=== PATIENT | female | born 1960 | race Asian ===

== ENCOUNTER → 2016-04-26 | Outpatient (CLI) | payer OTHER ==
[~2016-04-26] VITALS: Ht 157.5 cm; Wt 53.5 kg
[~2016-04-26] MED LIST: DULC100C PO; PROPOFOL 200 MG/20 ML AMP IV ONE
[2016-04-26 06:40] VITALS: BP 118/67; PULSE 71; RESP 16; TEMP 98.4; O2SAT 98
[2016-04-26 08:05] VITALS: TEMP 98.1
[2016-04-26 08:15] VITALS: BP 99/55; PULSE 55; RESP 16; O2SAT 99
--- NOTE | 2016-04-26 15:43 | EKG ---
Date Performed: 04/26/2016 Time Performed: 07:24:10 PTAGE: 56 years EKG: Sinus rhythm NORMAL ECG NO PREVIOUS TRACING DOCTOR: Mian Covington Interpretating Date/Time 04/26/2016 15:40:29
== END ==
LOC: HEND 05:47
PROVIDERS: ATTEND Colon & Rectal Surgery
DX: Z12.11 Encounter for screening for malignant neoplasm of colon (principal); Z80.0 Family history of malignant neoplasm of digestive organs; Z86.010 Personal history of colon polyps; D12.7 Benign neoplasm of rectosigmoid junction; Z01.810 Encounter for preprocedural cardiovascular examination
CPT/HCPCS: 88305; 93005

== ENCOUNTER → 2016-05-17 | Day surgery (SDC) | payer OTHER ==
[~2016-05-17] MED LIST changes: +ACETAMINOPHEN 1000 MG/100 ML VIAL IV ONE; +LACTATED RINGER'S 1000 ML INJ 1,000 ML ONE; +LIDOCAINE 1%/EPINEPHrine 1:100,000 SOLN 30 ML VIAL ONE; +MIDAZOLAM HCL 2 MG/2 ML VIAL ONE; +ONDANSETRON HCL 4 MG/2 ML VIAL IV PUSH ONE; +VANCOMYCIN HCL 1000 MG VIAL ONE; +ceFAZolin INJ 1,000 MG VIAL ONE
--- NOTE | 2016-06-01 13:15 | MP ---
cc: JOSSELIN ENRIQUEZ M.D. DATE OF SURGERY 05/17/2016 PROCEDURE Right breast wide local excision with needle localization. PREOPERATIVE DIAGNOSIS DCIS right breast. POSTOPERATIVE DIAGNOSIS DCIS right breast. ANESTHESIA LMA SURGEON Josselin Enriquez MD ESTIMATED BLOOD LOSS 30 mL FLUIDS 1050 mL crystalloid COMPLICATIONS None DRAINS None SPECIMEN Right breast tissue to pathology. PROCEDURE IN DETAIL The patient was seen in the Department of Radiology where she underwent needle localization. She was taken to the operating room and placed on the operating table in the supine position. The right breast was prepped and draped. Time-out was taken confirming the correct patient, site, and procedure to be performed. At this point, an incision was made in a circumareolar fashion from approximately the 8 o'clock to the 11 o'clock position on the breast. This was accomplished midway between the needle insertion site and the nipple-areolar complex. Dissection was carried down to the needle which was cut at the skin and brought into the wound. A generous core of tissue was removed including the needle. It should be noted that the clip had migrated in this patient after the initial image guided biopsy and was at least 3 cm from the biopsy site. Thus, the lesion was removed, but the clip was left behind. This was confirmed by the radiologist as well. While awaiting radiologic confirmation, the wound was made hemostatic with electrocautery. Upon receiving confirmation, the wound was closed in two layers with interrupted 3-0 Vicryl suture and 5-0 PDS in a running subcuticular fashion. The wound was dressed with Steri-Strips. The patient was taken back to the recovery room in stable condition. She tolerated the procedure well. Sponge, needle and instrument counts were reported to be correct. MD SANDRA Moyer/DJL /12:38 PM /12:58 PM BARBARA
== END | disposition home or self-care (01) ==
LOC: ESDC 07:21
PROVIDERS: ATTEND Surgery Trauma Surgery
DX: D05.11 Intraductal carcinoma in situ of right breast (principal)
CPT/HCPCS: 00400; 19125; 88307; 88361; J0131; J0690; J2250; J2405; J3010; J3370; J7120

== ENCOUNTER → 2016-07-11 | Outpatient (CLI) | payer OTHER ==
[~2016-07-11] MED LIST changes: -ACETAMINOPHEN 1000 MG/100 ML VIAL IV ONE; -LACTATED RINGER'S 1000 ML INJ 1,000 ML ONE; -LIDOCAINE 1%/EPINEPHrine 1:100,000 SOLN 30 ML VIAL ONE; -MIDAZOLAM HCL 2 MG/2 ML VIAL ONE; -ONDANSETRON HCL 4 MG/2 ML VIAL IV PUSH ONE; -PROPOFOL 200 MG/20 ML AMP IV ONE; -VANCOMYCIN HCL 1000 MG VIAL ONE; -ceFAZolin INJ 1,000 MG VIAL ONE
[2016-07-11 10:06] LABS: ALKALINE PHOSPHATASE 94 U/L (45-117); ALT (GPT) 29 U/L (10-53); ANION GAP 7 MEQ/L (5-15); AST (GOT) 14 U/L (15-37); BICARBONATE 29.6 MEQ/L (21.0-32.0); BLOOD UREA NITROGEN 9 MG/DL (7-18); CHLORIDE 103 MEQ/L (98-107); FREE T4 1.17 NG/DL (0.76-1.46); GLOMERULAR FILTRATION RATE 75 ML/MIN (>89); GLUCOSE,FASTING 97 MG/DL (74-99); MAGNESIUM 2.4 MG/DL (1.5-2.5); POTASSIUM 3.5 MEQ/L (3.5-5.1); SODIUM (NA) 140 MEQ/L (136-145); TOTAL BILIRUBIN ADULT 0.3 MG/DL (0.2-1.0)
== END ==
LOC: CLAB 09:08
PROVIDERS: ATTEND Radiology Radiation Oncology
DX: R00.2 Palpitations (principal); D05.11 Intraductal carcinoma in situ of right breast
CPT/HCPCS: 36415; 80053; 83735; 84439; 84443

== ENCOUNTER → 2016-07-26 | Outpatient (CLI) | payer OTHER ==
[2016-07-26 09:10] LABS: AUTOMATED NEUTROPHIL # 6.2 TH/MM3 (1.8-7.7); BASOPHIL # 0.1 TH/MM3 (0-0.2); EOSINOPHIL # 0.2 TH/MM3 (0-0.4); EOSINOPHIL % 2.7 % (0.0-4.0); HEMATOCRIT 45.4 % (35.0-46.0); HEMO FLAGS DIFF FINAL; LYMPHOCYTE # 1.1 TH/MM3 (1.0-4.8); MEAN CORPUSCULAR HEMOGLOBIN 27.1 PG (27.0-34.0); MONO % 5.1 % (0.0-8.0); NEUT % 77.2 % (16.0-70.0); PLATELET COUNT 278 TH/MM3 (150-450); RED BLOOD COUNT 5.53 MIL/MM3 (4.00-5.30); RED CELL DISTRIBUTION WIDTH 13.8 % (11.6-17.2)
== END ==
LOC: CLAB 08:47
PROVIDERS: ATTEND Radiology Radiation Oncology
DX: D05.11 Intraductal carcinoma in situ of right breast (principal)
CPT/HCPCS: 36415; 85025

== ENCOUNTER → 2016-09-29 | Outpatient (CLI) | payer OTHER ==
[2016-09-29 14:27] LABS: ALT (GPT) 29 U/L (10-53); ANION GAP 5 MEQ/L (5-15); AST (GOT) 28 U/L (15-37); BICARBONATE 29.8 MEQ/L (21.0-32.0); BLOOD UREA NITROGEN 8 MG/DL (7-18); CHLORIDE 108 MEQ/L (98-107); GLOMERULAR FILTRATION RATE 71 ML/MIN (>89); GLUCOSE,FASTING 93 MG/DL (74-99); POTASSIUM 3.7 MEQ/L (3.5-5.1); SODIUM (NA) 143 MEQ/L (136-145)
[2016-09-29 14:30] LABS: ALKALINE PHOSPHATASE 79 U/L (45-117); TOTAL BILIRUBIN ADULT 0.3 MG/DL (0.2-1.0)
== END ==
LOC: CLAB 13:47
PROVIDERS: ATTEND Family Medicine Adolescent Medicine
DX: E87.8 Other disorders of electrolyte and fluid balance, not elsewhere classified (principal)
CPT/HCPCS: 36415; 80053

== ENCOUNTER 2017-06-12 21:09 | Emergency (ER) | payer OTHER ==
[~2017-06-12] VITALS: Ht 157.5 cm; Wt 55.0 kg
[2017-06-12 21:38] VITALS: BP 126/68; PULSE 89; RESP 18; TEMP 98.6; O2SAT 98
[2017-06-13] MEDS ORDERED: SODIUM CHLOR 0.9% 1000 ML INJ 1,000 ML IV SCH (03:25)
[2017-06-13] MEDS ORDERED: SODIUM CHLORIDE 0.9% FLUSH 10 ML FLUSH IV FLUSH PRN (03:30)
[2017-06-13] MEDS ORDERED: ONDANSETRON HCL 4 MG/2 ML VIAL IVP ONE (03:30)
[2017-06-13] MEDS ORDERED: KETOROLAC TROMETHAMINE 30 MG/ML (IVP) VIAL IVP ONE (03:30)
[2017-06-13 03:42] VITALS: BP 119/57; PULSE 65; RESP 16; TEMP 99.6; O2SAT 97
[2017-06-13 03:59] LABS: AUTOMATED NEUTROPHIL # 8.1 TH/MM3 (1.8-7.7); BASOPHIL # 0.1 TH/MM3 (0-0.2); EOSINOPHIL # 0.1 TH/MM3 (0-0.4); EOSINOPHIL % 0.8 % (0.0-4.0); HEMATOCRIT 42.2 % (35.0-46.0); HEMOGLOBIN 14.1 GM/DL (11.6-15.3); LYMPH % 12.8 % (9.0-44.0); LYMPHOCYTE # 1.3 TH/MM3 (1.0-4.8); MEAN CELL VOLUME 83.8 FL (80.0-100.0); MEAN CORPUSCULAR HEMOGLOBIN 27.9 PG (27.0-34.0); MEAN CORPUSCULAR HGB CONC 33.3 % (32.0-36.0); MEAN PLATELET VOLUME 7.6 FL (7.0-11.0); MONO % 4.3 % (0.0-8.0); MONOCYTE # 0.4 TH/MM3 (0-0.9); NEUT % 81.1 % (16.0-70.0); PLATELET COUNT 215 TH/MM3 (150-450); RED BLOOD COUNT 5.04 MIL/MM3 (4.00-5.30); RED CELL DISTRIBUTION WIDTH 13.5 % (11.6-17.2)
[2017-06-13 04:09] LABS: BACTERIA, URINE RARE /hpf; BILIRUBIN, URINE NEG (NEG); BLOOD, URINE MOD (NEG); GLUCOSE,URINE NEG (NEG); KETONE, URINE 10 mg/dL (NEG); MUCUS URINE FEW /lpf (OCC); NITRITE,URINE NEG (NEG); PH, URINE 6.5 (5.0-8.5); SQUAMOUS EPITHELIAL CELL URINE 4 /hpf (0-5); TRANSITIONAL EPI CELLS, URINE <1 /hpf; URINE COLOR YELLOW (YELLW/STRAW); URINE LEUKOCYTE ESTERASE LARGE (NEG)
[2017-06-13 04:13] LABS: ALBUMIN 3.7 GM/DL (3.4-5.0); AST (GOT) 33 U/L (15-37); BICARBONATE 25.9 MEQ/L (21.0-32.0); BLOOD UREA NITROGEN 11 MG/DL (7-18); CALCIUM 8.7 MG/DL (8.5-10.1); CHLORIDE 106 MEQ/L (98-107); CREATININE 1.13 MG/DL (0.50-1.00); GLOMERULAR FILTRATION RATE 50 ML/MIN (>89); GLUCOSE,RANDOM 114 MG/DL (74-106); SODIUM (NA) 142 MEQ/L (136-145)
[2017-06-13 04:14] LABS: ALT (GPT) 30 U/L (10-53)
[2017-06-13 04:16] LABS: ALKALINE PHOSPHATASE 46 U/L (45-117); TOTAL BILIRUBIN ADULT 0.4 MG/DL (0.2-1.0); TOTAL PROTEIN 7.6 GM/DL (6.4-8.2)
--- NOTE | 2017-06-13 04:48 | RADRPT ---
EXAM DATE/TIME: 06/13/2017 04:37 [facility] COMPARISON: No previous studies available for comparison. INDICATIONS : Left flank pain. ORAL CONTRAST: No oral contrast ingested. RADIATION DOSE: 7.44 CTDIvol (mGy) MEDICAL HISTORY : Renal calculi. SURGICAL HISTORY : section. ENCOUNTER: Initial ACUITY: 1 day PAIN SCALE: 10/10 LOCATION: Left flank TECHNIQUE: Renal colic protocol. Volumetric scanning of the abdomen and pelvis was performed. Using automated exposure control and adjustment of the mA and/or kV according to patient size, radiation dose was kep t as low as reasonably achievable to obtain optimal diagnostic quality images. DICOM format image da ta is available electronically for review and comparison. FINDINGS: Right side: No evidence of hydronephrosis. No calcified stones in the collecting system or right ureter. Left side: Moderate severity hydronephrosis due to a 6 mm calcified stone in the proximal left ureter stop perin ephric fat intact. No additional calcified stones seen. Bladder: Smooth margins. No calcifications within the lumen. Other: Diffuse fatty change the liver. No calcified gallstones. Small hiatus hernia. CONCLUSION: 1. Left-sided obstructive uropathy due to 6 mm calcified proximal ureteral stone. Jian Mo MD on June 13, 2017 at 4:44 Board Certified Radiologist. This report was verified electronically.
[2017-06-13] MEDS ORDERED: PIPERACIL-TAZO 4.5 GM PREMIX 100 ML IV ONE (05:00)
[2017-06-13] MEDS ORDERED: SODIUM CHLOR 0.9% 1000 ML INJ 1,000 ML IV ONE (05:00)
[2017-06-13] MEDS ORDERED: MORPHINE SULFATE 2 MG/ML INJ IM ONE (05:00)
[2017-06-13] MEDS ORDERED: TAMS5CAP PO (06:30)
[2017-06-13] MEDS ORDERED: PERC5TAB12 PO (06:30)
--- NOTE | 2017-06-13 06:30 | PD ---
HPI . Flank pain/kidney pain Chief Complaint: Flank/Kidney Pain Time Seen by Provider: 03:17 Travel History International Travel<30 days: No Contact w/Intl Traveler<30days: No Traveled to known affect area: No History of Present Illness HPI 57-year-old female complains of having intermittent left flank pain the past 48 hours, worsening tonight. Patient denies any fever chills sweats, dysuria urgency frequency. Patient has had no similar pain before. There is no history of trauma. Denies hematuria PFSH Past Medical History Narrative Medical Past medical history reviewed Cancer: Yes (PENDING RIGHT BREAST BIOPSY) Cardiovascular Problems: No Diabetes: No Endocrine: No Gastrointestinal Disorders: Yes (POLYPS) Genitourinary: No Hepatitis: No Hiatal Hernia: No Immune Disorder: No Musculoskeletal: Yes (OA) Neurologic: No Psychiatric: No Reproductive: No Respiratory: No Thyroid Disease: No ?: Not LMP: "FIVE YEARS AGO" Past Surgical History Abdominal Surgery: No AICD: No Cardiac Surgery: No Ear Surgery: No Endocrine Surgery: No Eye Surgery: No Genitourinary Surgery: No Gynecologic Surgery: Yes (EXCISION CYST LEFT BREAST, ) Joint Replacement: No Oral Surgery: No Pacemaker: No Thoracic Surgery: No Other Surgery: Yes ("LUMPECTOMY") Social History Alcohol Use: No Tobacco Use: No Substance Use: No Allergies-Medications (Allergen,Severity, Reaction): Coded Allergies: No Known Allergies (Unverified Adverse Reaction, Unknown, 06/12/17) Reported Meds & Prescriptions Reported Meds & Active Scripts Active Reported Dulcolax Stool Softener (Docusate Sodium) 100 Mg Cap 100 Mg PO BID Narrative Medication Allergies and medications reviewed Review of Systems Except as stated in HPI: all other systems reviewed are Neg General / Constitutional: No: Fever Eyes: No: Visual changes HENT: No: Headaches Cardiovascular: No: Chest Pain or Discomfort Respiratory: No: Shortness of Breath Gastrointestinal: No: Abdominal Pain Genitourinary: Positive: Flank Pain, No: Dysuria Musculoskeletal: No: Pain Skin: No Rash Neurologic: No: Weakness Psychiatric: No: Depression Endocrine: No: Polydipsia Hematologic/Lymphatic: No: Easy Bruising Physical Exam Narrative GENERAL: Awake alert oriented 3 appears uncomfortable. Vital signs afebrile normal and stable SKIN: Warm and dry. Skin is slightly sallow, no diaphoresis cyanosis or pallor HEAD: Atraumatic. Normocephalic. EYES: Pupils equal and round. No scleral icterus. No injection or drainage. ENT: No nasal bleeding or discharge. Mucous membranes pink and moist. NECK: Trachea midline. No JVD. Supple nontender CARDIOVASCULAR: Regular rate and rhythm. S1-S2 no murmurs rubs gallops RESPIRATORY: No accessory muscle use. Clear to auscultation. Breath sounds equal bilaterally. GASTROINTESTINAL: Abdomen soft, non-tender, nondistended. Hepatic and splenic margins not palpable. No significant CVA tenderness MUSCULOSKELETAL: Extremities without clubbing, cyanosis, or edema. No obvious deformities. NEUROLOGICAL: Awake and alert. No obvious focal deficits PSYCHIATRIC: Appropriate mood and affect; insight and judgment normal. Data Data Last Documented VS Vital Signs Date Time Temp Pulse Resp B/P (MAP) Pulse Ox O2 Delivery O2 Flow Rate FiO2 06/13/17 03:42 99.6 65 16 119/57 (77) 97 Room Air Orders Orders Complete Blood Count With Diff (06/13/17 03:25) Comprehensive Metabolic Panel (06/13/17 03:25) Urinalysis - C+S If Indicated (06/13/17 03:25) Ct Abd/Pel W/O Iv Contrast (06/13/17 03:25) Iv Access Insert/Monitor (06/13/17 03:25) Ecg Monitoring (06/13/17 03:25) Oximetry (06/13/17 03:25) Ondansetron Inj (Zofran Inj) (06/13/17 03:30) Sodium Chlor 0.9% 1000 Ml Inj (Ns 1000 M (06/13/17 03:25) Sodium Chloride 0.9% Flush (Ns Flush) (06/13/17 03:30) Ketorolac Inj (Toradol Inj) (06/13/17 03:30) Piperacil-Tazo 4.5 Gm Premix (Zosyn 4.5 (06/13/17 05:00) Morphine Inj (Morphine Inj) (06/13/17 05:00) Sodium Chlor 0.9% 1000 Ml Inj (Ns 1000 M (06/13/17 05:00) Labs Laboratory Tests Test 06/13/17 03:15 06/13/17 03:45 Urine Color YELLOW Urine Turbidity HAZY Urine pH 6.5 Urine Specific [place] 1.023 Urine Protein TRACE mg/dL Urine Glucose (UA) NEG mg/dL Urine Ketones 10 mg/dL Urine Occult Blood MOD Urine Nitrite NEG Urine Bilirubin NEG Urine Urobilinogen 2.0 MG/DL Urine Leukocyte Esterase LARGE Urine RBC 140 /hpf Urine WBC 6 /hpf Urine Squamous Epithelial Cells 4 /hpf Urine Transitional Epithelial Cells <1 /hpf Urine Bacteria RARE /hpf Urine Mucus FEW /lpf Microscopic Urinalysis Comment CULT NOT INDICATED White Blood Count 10.0 TH/MM3 Red Blood Count 5.04 MIL/MM3 Hemoglobin 14.1 GM/DL Hematocrit 42.2 % Mean Corpuscular Volume 83.8 FL Mean Corpuscular Hemoglobin 27.9 PG Mean Corpuscular Hemoglobin Concent 33.3 % Red Cell Distribution Width 13.5 % Platelet Count 215 TH/MM3 Mean Platelet Volume 7.6 FL Neutrophils (%) (Auto) 81.1 % Lymphocytes (%) (Auto) 12.8 % Monocytes (%) (Auto) 4.3 % Eosinophils (%) (Auto) 0.8 % Basophils (%) (Auto) 1.0 % Neutrophils # (Auto) 8.1 TH/MM3 Lymphocytes # (Auto) 1.3 TH/MM3 Monocytes # (Auto) 0.4 TH/MM3 Eosinophils # (Auto) 0.1 TH/MM3 Basophils # (Auto) 0.1 TH/MM3 CBC Comment DIFF FINAL Differential Comment Blood Urea Nitrogen 11 MG/DL Creatinine 1.13 MG/DL Random Glucose 114 MG/DL Total Protein 7.6 GM/DL Albumin 3.7 GM/DL Calcium Level 8.7 MG/DL Alkaline Phosphatase 46 U/L Aspartate Amino Transf (AST/SGOT) 33 U/L Alanine Aminotransferase (ALT/SGPT) 30 U/L Total Bilirubin 0.4 MG/DL Sodium Level 142 MEQ/L Potassium Level 3.3 MEQ/L Chloride Level 106 MEQ/L Carbon Dioxide Level 25.9 MEQ/L Anion Gap 10 MEQ/L Estimat Glomerular Filtration Rate 50 ML/MIN [facility] Medical Decision Making Medical Screen Exam Complete: Yes Emergency Medical Condition: Yes Medical Record Reviewed: Yes Differential Diagnosis Flank pain, pyelonephritis, kidney stone, obstructing kidney stone Narrative Course CT abdomen pelvis noncontrast reveals 6 mm proximal ureteral stone at the distal aspect of patient's left ureteral pelvis. Obstructing as per radiology. Urinalysis reveals large leukocyte esterase, 6 white blood cells. GFR slightly decreased at 50 Diagnosis Primary Impression: Kidney stone Additional Impression: Urinary tract infection Qualified Codes: N39.0 - Urinary tract infection, site not specified Patient Instructions: General Instructions, Kidney Stones (ED) Additional Instructions: Drink plenty of fluids. Take antibiotics as prescribed Bactrim twice daily for 10 days. Follow up with urologist Dr. Villar. Do not take Motrin aspirin or blood thinner type products prior to evaluation by Dr. Villar, pending possible lithotripsy. Follow-up with your doctor, return for worsening Scripts Tamsulosin (Flomax) 0.4 Mg Cap 0.4 MG PO HS for Manage Prostate Problems, #30 CAP 0 Refills Prov: Luis Gilman MD 06/13/17 Oxycodone-Acetaminophen (Percocet) 5-325 mg Tab 1-2 TAB PO Q6H Y for PAIN, #20 TAB 0 Refills Prov: Luis Gilman MD 06/13/17 Disposition: 01 DISCHARGE HOME Condition: Stable Luis Gilman MD Jun 13, 2017 06:30
[2017-06-13] MEDS ORDERED: BACT800T5 PO (06:47)
== END 2017-06-13 07:00 | disposition home or self-care (01) ==
LOC: NEPC 21:09
DX: N39.0 Urinary tract infection, site not specified (principal); N13.2 Hydronephrosis with renal and ureteral calculous obstruction
CPT/HCPCS: 74176; 80053; 81001; 85025; 96372; 96374; 96375; 99284; J1885; J2270; J2405; J2543; J7030

== ENCOUNTER → 2017-06-27 | Day surgery (SDC) | payer OTHER ==
[~2017-06-27] VITALS: Ht 157.5 cm; Wt 57.5 kg
[~2017-06-27] MED LIST changes: +BACT800T5 PO; +CALC500T37 PO; +CHLORHEXIDINE GLUCONATE 2 % 1 PACK (2 CLOTHS) TOPICAL PRN; +DEXAMETHASONE SOD PHOS 4 MG/ML VIAL IV ONE; +LACTATED RINGER'S 1000 ML IV PRN; +LEXA5TAB PO; +METOPROLOL TARTRATE 25 MG TAB PO PRN; +MIDAZOLAM HCL 2 MG/2 ML VIAL ONE; +ONDANSETRON HCL 4 MG/2 ML VIAL IV PUSH ONE; +PERC5TAB12 PO; +POVIDONE IODINE 5% (ANTISEPSIS KIT) 4 APPLICATIONS EACH NARE PRN; +SODIUM CHLORID 0.9% 500 ML IV PRN; +TAMO10TA6 PO; +TAMS5CAP PO; +VITA1000 PO; +ceFAZolin 1,000 MG/NS 100 ML IV SCH; +ePHEDrine/NS 25 MG/5 ML SYRINGE IV ONE
--- NOTE | 2017-06-27 10:21 | RADRPT ---
EXAM DATE/TIME: 06/27/2017 09:39 [facility] COMPARISON: CT ABDOMEN & PELVIS W/O CONTRAST, June 13, 2017, 4:37. INDICATIONS : Pre-op lithotripsy left side. MEDICAL HISTORY : Renal calculi. SURGICAL HISTORY : section. ENCOUNTER: Initial ACUITY: 1 day PAIN SCORE: 0/10 LOCATION: abdomen FINDINGS: Supine view of the abdomen was performed. The abdominal bowel gas pattern is normal. No abnormal ma sses, calcifications, or organomegaly is seen. Prior renal colic CT a demonstrated a 6 mm calcified stone in the left flank/proximal ureter, approximately at the L3-4 level; no calcification appreciate d radiographically in the left flank or pelvis. Minimal curvature of the lower lumbar spine convex t owards the left. The visualized lower lungs are clear.. CONCLUSION: 1. No dilated loops of small or large bowel. 2. The left proximal ureteral calcified stone seen on prior renal colic CT is not discernible radi ographically. Jian Mo MD on June 27, 2017 at 10:15 Board Certified Radiologist. This report was verified electronically.
[2017-06-27 10:52] LABS: AUTOMATED NEUTROPHIL # 3.4 TH/MM3 (1.8-7.7); BASOPHIL # 0.1 TH/MM3 (0-0.2); BASOPHIL % 0.9 % (0.0-2.0); EOSINOPHIL # 0.3 TH/MM3 (0-0.4); EOSINOPHIL % 5.1 % (0.0-4.0); HEMATOCRIT 38.3 % (35.0-46.0); HEMOGLOBIN 12.7 GM/DL (11.6-15.3); LYMPH % 28.8 % (9.0-44.0); LYMPHOCYTE # 1.7 TH/MM3 (1.0-4.8); MEAN CELL VOLUME 84.1 FL (80.0-100.0); MEAN CORPUSCULAR HEMOGLOBIN 27.9 PG (27.0-34.0); MEAN CORPUSCULAR HGB CONC 33.1 % (32.0-36.0); MEAN PLATELET VOLUME 7.7 FL (7.0-11.0); MONO % 6.4 % (0.0-8.0); MONOCYTE # 0.4 TH/MM3 (0-0.9); NEUT % 58.8 % (16.0-70.0); PLATELET COUNT 239 TH/MM3 (150-450); RED BLOOD COUNT 4.55 MIL/MM3 (4.00-5.30); RED CELL DISTRIBUTION WIDTH 13.6 % (11.6-17.2); WHITE BLOOD COUNT 5.8 TH/MM3 (4.0-11.0)
--- NOTE | 2017-06-27 12:51 | PD.OP ---
Operative Report Date of Surgery: Jun 27, 2017 Preoperative Diagnosis: Left ureteral calculus Postoperative Diagnosis: Same Procedure: Left extracorporeal shockwave lithotripsy Anesthesia: MAC Surgeon: Jose Villar Refrigeration Unit Repairer(s): None Resident Surgeon: None Operation and Findings: 57-year-old female presented to the office with findings on CT scan of a 6 mm proximal left ureteral stone causing obstruction. Patient elected to undergo left extrapleural shockwave lithotripsy. Risks and benefits were discussed preoperatively including bleeding infection along with extra organ injury and she was willing to proceed. Patient was brought to the operating room and identified by myself as Sue Mcrae. She is placed in the operating room table in the supine position, received preprocedure antibiotics and MAC anesthesia was administered. Under fluoroscopic and ultrasound imaging guidance the stone was visualized in the proximal left ureter. ESWL therapy commenced. Good fragmentation of the stone was visualized within the ureter. Patient received a total of 2500 shocks at a power level of 5. She tolerated the procedure well and was awoken and transferred recovery in stable condition. She will follow-up in a few weeks in the office and obtain a CT scan prior to her visit. Jose Villar DO Jun 27, 2017 12:51
--- NOTE | 2017-06-27 13:03 | EKG ---
Date Performed: 06/27/2017 Time Performed: 09:38:28 PTAGE: 57 years EKG: Sinus rhythm NORMAL ECG PREVIOUS TRACING : 04/26/2016 07.24 DOCTOR: Dillan Colon Interpretating Date/Time 06/27/2017 13:01:52
[2017-06-27 13:08] VITALS: TEMP 97.1
[2017-06-27 14:11] VITALS: BP 110/74; PULSE 70; RESP 16; O2SAT 98
== END | disposition home or self-care (01) ==
LOC: HSDC 09:05
PROVIDERS: ATTEND Urology
DX: N20.1 Calculus of ureter (principal); Z01.810 Encounter for preprocedural cardiovascular examination; Z01.818 Encounter for other preprocedural examination
CPT/HCPCS: 00872; 50590; 74018; 85025; 93005; J1100; J2250; J2405; J3010; J7120